=== PATIENT | male | born 1990 | race Caucasian/White ===

== ENCOUNTER 2018-01-12 09:18 | Emergency (ER) | payer OTHER, MEDICAID, SELFPAY ==
[2018-01-12 09:27] VITALS: BMI 24.1
[2018-01-12 09:28] VITALS: BP 121/83; PULSE 88; RESP 14; TEMP 36.6; O2SAT 100
--- NOTE | 2018-01-12 09:30 | PC.NURSE ---
states , occasional weed
--- NOTE | 2018-01-12 09:58 | ED.FALL ---
HPI - Fall General Chief Complaint: Fall Stated Complaint: SKATEBOARD ACCIDENT Time Seen by Provider: 01/12/18 09:24 Source: patient Mode of arrival: ambulatory Limitations: no limitations History of Present Illness HPI Narrative: 27-year-old male with a history of drug use presents with left elbow pain after falling at the [employer] park today. He has a small abrasion but does not think there is a significant injury. More concerning least to him he would like to be evaluated for a head injury that occurred 3 years ago while in [place]. Since that time he states he has had off and on headaches. He does not have a headache today. He states he has an appointment with his primary care provider tomorrow where he is planning to discuss this further. He denies any confusion, weakness, or other neurologic symptoms. He states that about 3 weeks ago while he was walking outside his body involuntarily turned to the left. Since then he has had no other symptoms. He did not hit his head in the injury at the [employer] today. Related Data Home Medications Medication Instructions Recorded Confirmed clonazepam #90 10/11/17 Previous Rx's Medication Instructions Recorded dextroamphetamine-amphetamine 30 mg PO QDAY #45 cap 03/18/16 permethrin 1 tube TOPICAL X1 #60 gm 10/07/17 mupirocin 0 red TOPICAL TID #22 gm 10/11/17 permethrin 0 red TOPICAL X1 #60 gm 10/11/17 Review of Systems Review of Systems All systems reviewed & are unremarkable except as noted in HPI and below Constitutional Denies chills, Denies fever(s), Denies lethargy and Denies weakness Eyes Denies change in vision, Denies eye discharge, Denies irritation and Denies loss of vision ENT Ears, Nose, Mouth, and Throat: Denies change in voice, Denies neck pain and Denies sore throat Cardiovascular Denies chest pain, Denies irregular heart rhythm, Denies lightheadedness, Denies palpitations, Denies dyspnea, Denies dyspnea on exertion and Denies orthopnea Respiratory Denies cough, Denies dyspnea, Denies dyspnea on exertion and Denies wheezing Gastrointestinal Gastrointestinal: Denies abdominal pain, Denies change in bowel habits, Denies diarrhea, Denies nausea and Denies vomiting Genitourinary Denies hematuria, Denies flank pain, Denies urinary incontinence and Denies urinary urgency Musculoskeletal Denies neck pain Integumentary/Breasts Denies pruritus, Denies erythema, Denies rash and Reports wounds Comments: Abrasion to left elbow Neurologic Denies confusion, Denies loss of vision and Denies weakness Psychiatric Denies anxiety, Denies confusion, Denies depression, Denies homicidal ideation and Denies suicidal ideation Endocrine Denies palpitations Hematologic/Lymphatic Denies easy bruising Allergic/Immunologic Denies wheezing Exam Initial Vital Signs Initial Vital Signs: Vital Signs Temperature 97.9 F 01/12/18 09:28 Pulse Rate 88 01/12/18 09:28 Respiratory Rate 14 01/12/18 09:28 Blood Pressure 121/83 H 01/12/18 09:28 Pulse Oximetry 100 01/12/18 09:28 Const General: cooperative and well developed Nutritional Appearance: well nourished Orientation: alert, awake, oriented x3 and not confused Other: Patient appears high on drugs HENMT Head: normocephalic and atraumatic Ears: external ears normal and TM's normal bilaterally Nose: external nose normal and No nasal discharge Face and sinus: sinuses nontender, face symmetric, no sinus tenderness and No dry mucous membranes Mouth: oral mucosae normal and moist mucous membranes Teeth and gingiva: dentition normal Throat: tonsils normal and uvula midline Eyes General: appearance normal, both eyes and all related structures Eyelids: eyelids normal Conjunctivae: conjunctivae normal Sclera: sclerae normal Pupils: PERRL EOM: EOM intact bilaterally Neck Neck: normal visual inspection, trachea midline, No lymphadenopathy, No midline deformity and No JVD Lymphatic: No lymphedema Chest Chest: normal inspection of the chest Resp Effort & Inspection: normal respiratory effort, able to speak in complete sentences, no respiratory distress and no use of accessory muscles Auscultation: clear to auscultation bilaterally, no rales, no rhonchi and no wheezes Cardio Rate: regular rate Rhythm: regular rhythm Heart Sounds: no click, no gallops, no murmurs and no rubs Pulses: normal peripheral pulses GI Inspection: non-distended Palpation: soft, no hepatosplenomegaly, No guarding, No pulsatile mass and No tender Auscultation: normal bowel sounds Back/Spine/Pelvis Back: No CVA tenderness Cervical Spine: cervical ROM normal and No pain with cervical ROM Thoracic/Lumbar Spine: thoracic and lumbar spine normal to inspection Skin General: no rashes or lesions noted, No jaundice and No petechiae Other: Small abrasion over left elbow with no tenderness or pain with range of motion Neuro General: alert, oriented x3, gait normal and no focal motor deficits Speech: speech normal Extrem General: full ROM, no clubbing, cyanosis or edema, no pedal edema and no calf tenderness Psych Appearance: well kempt Mental Status: mental status grossly normal Attitude: cooperative Thought Content: normal and suicidality Judgment: judgment good [facility] Social History Smoking Status: Current every day smoker Course Vital Signs - 8 hr 01/12/18 09:28 Temperature 97.9 F Pulse Rate 88 Respiratory Rate 14 Blood Pressure [Left Arm] 121/83 H Pulse Oximetry 100 MDM - Fall MDM Narrative Medical decision making narrative: No significant injuries are noted on examination. By history his head injury 3 years ago does not appear pertinent today in an emergency setting. He has follow-up tomorrow with his primary care provider and I advised that he discuss this further then. Discharge Plan Departure Patient Disposition: Home, Self-Care Clinical Impression: Fall from ground level, Contusion of elbow, left Instructions: DI for Contusion Activity Restrictions/Additional Instructions: Thank you for trusting is with your care today. No dangerous injuries were identified in your emergency department evaluation. Please do not use drugs. Follow up about your concerns from year head injury 3 years ago with your primary care as scheduled tomorrow. Prescriptions: No Action dextroamphetamine-amphetamine 30 MG capsule,extended release 24hr 30 mg PO QDAY Qty: 45 RF: 0 permethrin 5 % cream 1 tube Topical X1 Qty: 60 RF: 0 clonazepam 1 MG tablet Qty: 90 RF: 0 permethrin 5 % cream Topical X1 Qty: 60 RF: 0 mupirocin 2 % ointment Topical TID Qty: 22 RF: 0
== END 2018-01-12 10:15 | disposition home or self-care (01) ==
PROVIDERS: Emergency Provider Emergency Medicine; Family Provider Family Medicine; PCP Family Medicine
DX: S50.02XA Contusion of left elbow, initial encounter (principal); V00.131A Fall from skateboard, initial encounter
CPT/HCPCS: 99282; 99283

== ENCOUNTER 2019-04-29 10:57 | Emergency (ER) | payer OTHER, MEDICAID, SELFPAY ==
--- NOTE | 2019-04-29 11:09 | ED_ITS ---
HPI - Extremity Problem <Becky Hauser PA-C - Last Filed: 04/29/19 14:03> General Chief complaint: Skin/Abscess/Foreign Body Stated complaint: pain in fingers and heels of feet Time Seen by Provider: 04/29/19 11:07 Source: patient Mode of arrival: Ambulatory Limitations: no limitations History of Present Illness HPI Narrative: This 28-year-old male comes to ED secondary to recurrent painful rash on his hands, states this has been going on for months but a few days ago got worse after he had his hands in salt water. He states he also noticed some white discoloration and flaking on his feet, more on the right side, when in the shower a few days ago, but this is not painful. He states that he has had intermittent singular blister-like lesions more in the trunk area off and on, no ne now. He is a commercial loan analyst, and though he has not been fishing regularly or crabbng recently, this started when he was still fishing. He states he has some ongoing fatigue, denies any recent illness or upper respiratory his symptoms. He denies any ongoing fever, joint pain or swelling. He denies any dyspnea or cough. He states that he came in today because the hand rash seems worse and more painful after exposure to the salt water. He noticed some black discoloration under his nails after that as well that goes away with rubbing alcohol. He was concerned that this could be contagious. He denies any recent travel or known specific exposures. No STD concerns though he states he has a remote history of scabies. Related Data Home Medications Medication Instructions Recorded Confirmed clonazepam #90 10/11/17 Previous Rx's Medication Instructions Recorded dextroamphetamine-amphetamine 30 mg PO QDAY #45 cap 03/18/16 permethrin 1 tube TOPICAL X1 #60 gm 10/07/17 mupirocin 0 red TOPICAL TID #22 gm 10/11/17 permethrin 0 red TOPICAL X1 #60 gm 10/11/17 clobetasol 1 applictn TOP DAILY #60 gram 04/29/19 Allergies Allergy/AdvReac Type Severity Reaction Status Date / Time No Known Drug Allergies Allergy Verified 04/29/19 11:18 Review of Systems <Becky Hauser PA-C - Last Filed: 04/29/19 14:03> Review of Systems ROS Unobtainable: All systems reviewed & are unremarkable except as noted in HPI and below PFSH <Becky Hauser PA-C - Last Filed: 04/29/19 14:03> Medical History (Updated 04/29/19 @ 11:44 by Becky Hauser PA-C) Anxiety (Chronic) History of narcotic addiction (Resolved) No chronic problems (Acute) Surgical History (Updated 04/29/19 @ 11:10 by Becky Hauser PA-C) No history of previous surgery (Acute) Social History Smoking Status: Current every day smoker Social History Smoking Status: Current every day smoker Comment: h/o addiction, currently sober, on suboxone Exam <Becky Hauser PA-C - Last Filed: 04/29/19 14:03> Narrative Exam Narrative: GENERAL APPEARANCE: Patient sitting comfortably, in no distress. LUNGS: Clear to auscultation bilaterally. HEART: Rate and rhythm regular without murmur, normal S1 and S2, no S3 or S4. DERMATOLOGIC: There are small, scant, 1-3 mm maculopapular dusky erythematous lesions on the distal fingers and dry scaling/flaking around the nail borders on the fingers. There is some callus on the palms. There are no vesicular or pustular lesions. There is some dry flaking on both heels, no other lesions on the feet. No interdigital lesions. Skin on the fingers appears slightly tight with extension MUSCULOSKELETAL: No joint tenderness or effusion over the hands, wrists, feet or ankles EXTREMITIES: Warm and pink without cyanosis or edema Initial Vital Signs Initial Vital Signs: Vital Signs Temperature 98.2 F 04/29/19 11:15 Pulse Rate 68 04/29/19 11:15 Respiratory Rate 16 04/29/19 11:15 Blood Pressure 129/78 04/29/19 11:15 Pulse Oximetry 98 04/29/19 11:15 <Miquel Condon DO - Last Filed: 04/29/19 15:50> Initial Vital Signs Initial Vital Signs: Vital Signs Temperature 98.2 F 04/29/19 11:15 Pulse Rate 68 04/29/19 11:15 Respiratory Rate 16 04/29/19 11:15 Blood Pressure 129/78 04/29/19 11:15 Pulse Oximetry 98 04/29/19 11:15 Course <Becky Hauser PA-C - Last Filed: 04/29/19 14:03> Vital Signs Vital signs: Vital Signs - 8 hr 04/29/19 11:15 Temperature 98.2 F Pulse Rate 68 Respiratory Rate 16 Blood Pressure 129/78 Pulse Oximetry 98 <Miquel Condon DO - Last Filed: 04/29/19 15:50> Vital Signs Vital signs: Vital Signs - 8 hr 04/29/19 11:15 Temperature 98.2 F Pulse Rate 68 Respiratory Rate 16 Blood Pressure 129/78 Pulse Oximetry 98 Discharge Plan Departure Patient Disposition: Home Clinical Impression: Dyshidrotic eczema Discharge Date/Time: 04/29/19 11:48 Instructions: Eczema Activity Restrictions/Additional Instructions: From the long history of the skin problems you tell me about and based on your exam today I think you have a form of eczema called dyshidrotic eczema, which is not unusual in folks who have prolonged water and moisture exposure. I have p rescribed a steroid cream for you to try until you can see a primary care provider and assess how this is working for you. Please avoid using hot water when you wash or shower. Avoid use of harsh soaps, perfumes, etc. Use an allergy free cream such as Cetaphil on these areas as well and you can also use vaseline on dry areas. If you need to work, wear cotton gloves under your crabbing gloves. As we talked about, since you have had intermittent rashes for several months such as the blisters that were not there today for me to see, I do think it is important for you to follow up and have further testing. It will be helpful to see how the steroid works for you in the interim. As we talked about, you can return to the ED in the interim if you have any acute changes or worsening symptoms. Please call the [facility] senior water resources engineer at [phone] on Wednesday for help getting set up with a primary care provider to follow up with. Prescriptions: New clobetasol 0.05 % cream 1 applictn TOP DAILY Qty: 60 RF: 0 No Action dextroamphetamine-amphetamine 30 MG capsule,extended release 24hr 30 mg PO QDAY Qty: 45 RF: 0 permethrin 5 % cream 1 tube Topical X1 Qty: 60 RF: 0 clonazepam 1 MG tablet Qty: 90 RF: 0 permethrin 5 % cream 0 red Topical X1 Qty: 60 RF: 0 mupirocin 2 % ointment 0 red Topical TID Qty: 22 RF: 0
[2019-04-29 11:15] VITALS: BP 129/78; PULSE 68; RESP 16; TEMP 36.8; O2SAT 98
--- NOTE | 2019-04-29 11:47 | PC.NURSE ---
reports long history of white bumps and black under finger nail and on hands. Worse after hot showers. Patient has similar symptoms on feet bilaterally heels and balls of feet. SOme discoloration under toe nail beds
== END 2019-04-29 11:48 | disposition home or self-care (01) ==
PROVIDERS: Emergency Provider Internal Medicine
DX: L30.1 Dyshidrosis [pompholyx] (principal)
CPT/HCPCS: 99282

== ENCOUNTER 2019-07-02 16:46 | Emergency (ER) | payer OTHER, MEDICAID, SELFPAY ==
[2019-07-02] VITALS (12 sets, daily range): BP systolic 107–125; BP diastolic 57–80; PULSE 82–107; RESP 9–16; TEMP 36.8; O2SAT 96–98; BMI 25.8
[2019-07-02 17:19] LABS: Bacteria Urine None Seen; RBC Urine None Seen (0-5/HPF); WBC Urine None Seen (0-5/HPF)
[2019-07-02 17:20] LABS: Appearance Urine UA CLEAR; Bilirubin Urine UA NEGATIVE (NEGATIVE); Color Urine UA YELLOW; Glucose Urine UA NEGATIVE (Negative); Ketones Urine UA TRACE (NEGATIVE); Leukocyte Esterase Urine UA NEGATIVE (NEGATIVE); Nitrite Urine UA NEGATIVE (Negative); Occult Blood Urine UA NEGATIVE (Negative); Protein Urine UA NEGATIVE (Negative); Urobilinogen Urine UA 0.2 E.U./dL (0.2); pH Urine UA 6.5 (4.5-8.0)
[2019-07-02 17:23] LABS: Add Manual Diff / Slide Review NO; Basophils Absolute Auto 0 /uL (0-100); Basophils Percent Auto 0.8 % (0-2); Eosinophils Absolute Auto 300 /uL (0-450); Eosinophils Percent Auto 7.2 % (2-4); Hematocrit 37.8 % (41-53); Hemoglobin 12.9 g/dL (13.5-17.5); Lymphocytes Absolute Auto 1900 /uL (1100-4500); Lymphocytes Percent Auto 42.6 % (25-40); Mean Corpuscular Hemoglobin 30.8 PG (26-34); Mean Corpuscular Volume 90.4 fL (80-100); Monocytes Absolute Auto 400 /uL (0-900); Monocytes Percent Auto 8.9 % (3-14); Neutrophils Absolute Auto 1800 /uL (1500-7000); Neutrophils Percent Auto 40.5 % (50-75); Platelet Count 209 X10^3/uL (150-400); Red Blood Cell Count 4.18 X10^6/uL (4.5-5.9); Red Cell Distribution Width 13.5 % (11.6-14.8); White Blood Cell Count 4.4 X10^3/uL (4.5-11.0)
[2019-07-02 17:25] LABS: Blood Urea Nitrogen 14 mg/dL (9-20); Calcium 8.7 mg/dL (8.4-10.2); Carbon Dioxide 33 mmol/L (22-32); Chloride 102 mmol/L (98-107); Estimated Glomerular Filt Rate > 60.0 mL/min (>60); Glucose 102 mg/dL (70-100); HEMOLYSIS 20 (0-50); Potassium 4.4 mmol/L (3.4-5.1); Sodium 141 mmol/L (137-145)
[2019-07-02 17:26] LABS: Ur Creatinine 100 (Normal); Ur Specific Gravity 1.025 (Normal); Urine pH 5 (Normal)
[2019-07-02 17:27] LABS: UR Morphine/Opiate cutoff 300 Positive (Negative); Urine Amphetamines Positive (Negative); Urine Cocaine Positive (Negative); Urine Methamphetamines Positive (Negative); Urine Tetrahydrocannabinol Positive (Negative)
[2019-07-02 17:28] LABS: Urine Barbiturates Negative (Negative); Urine Benzodiazepines Negative (Negative); Urine MDMA Negative (Negative); Urine Phencyclidine Negative (Negative)
[2019-07-02 17:29] LABS: Urine Oxycodone Negative (Negative); Urine Tricyclic Antidepressant Negative (Negative)
[2019-07-02 17:33] LABS: Culture Indicated Urine Cult Not Indicated
--- NOTE | 2019-07-02 17:34 | ED.OVERDOSE ---
HPI - Overdose <Judy Salas MD - Last Filed: 07/03/19 20:06> General Chief Complaint: Toxicology Problem Stated Complaint: ETOH, Altered mental status Time Seen by Provider: 07/02/19 17:13 Source: EMS Mode of arrival: EMS Limitations: altered mental status History of Present Illness HPI Narrative: Patient was brought to the emergency department [place] EMS was contacted and patient was brought to the emergency department by them. The patient admits to taking some his Klonopin, though he cannot say how much. He is not able to offer much historical information, as he is under the influence of a sedating substance clinically. It is not known whether he took any other substances besides the Klonopin. Related Data Home Medications Medication Instructions Recorded Confirmed clonazepam #90 10/11/17 Previous Rx's Medication Instructions Recorded dextroamphetamine-amphetamine 30 mg PO QDAY #45 cap 03/18/16 permethrin 1 tube TOPICAL X1 #60 gm 10/07/17 mupirocin 0 red TOPICAL TID #22 gm 10/11/17 permethrin 0 red TOPICAL X1 #60 gm 10/11/17 clobetasol 1 applictn TOP DAILY #60 gram 04/29/19 Allergies Allergy/AdvReac Type Severity Reaction Status Date / Time No Known Drug Allergies Allergy Verified 04/29/19 11:18 Review of Systems <Judy Salas MD - Last Filed: 07/03/19 20:06> Review of Systems ROS Unobtainable: Unobtainable due to mental status/LOC Patient History <Judy Salas MD - Last Filed: 07/03/19 20:06> Medical History Anxiety (Chronic) History of narcotic addiction (Resolved) No chronic problems (Acute) Surgical History No history of previous surgery (Acute) Social History Smoking Status: Current every day smoker Substance Use Type: other Exam <Judy Salas MD - Last Filed: 07/03/19 20:06> Initial Vital Signs Initial Vital Signs: Vital Signs Temperature 98.3 F 07/02/19 17:05 Pulse Rate 107 H 07/02/19 17:05 Respiratory Rate 14 07/02/19 17:05 Blood Pressure 125/80 07/02/19 17:05 Pulse Oximetry 96 07/02/19 17:05 Const General: cooperative and well developed Nutritional Appearance: well nourished Limitations: altered mental status Other: Patient is arousable, but heavily drowsy. He mumbles answers to questions when aroused with noxious stimuli. HENSD Head: normocephalic and atraumatic Ears: external ears normal and TM's normal bilaterally Nose: external nose normal and No nasal discharge Face and sinus: sinuses nontender, face symmetric, no sinus tenderness and No dry mucous membranes Mouth: oral mucosae normal and moist mucous membranes Teeth and gingiva: dentition normal Throat: tonsils normal and uvula midline Eyes General: appearance normal, both eyes and all related structures Eyelids: eyelids normal Conjunctivae: conjunctivae normal Sclera: sclerae normal Pupils: PERRL EOM: EOM intact bilaterally Neck Neck: normal visual inspection, trachea midline, No lymphadenopathy, No midline deformity and No JVD Lymphatic: No lymphedema Chest Chest: normal inspection of the chest Resp Effort & Inspection: normal respiratory effort, able to speak in complete sentences, no respiratory distress and no use of accessory muscles Auscultation: clear to auscultation bilaterally, no rales, no rhonchi and no wheezes Cardio Rate: regular rate Rhythm: regular rhythm Heart Sounds: no click, no gallops, no murmurs and no rubs Pulses: normal peripheral pulses GI Inspection: non-distended Palpation: soft, no hepatosplenomegaly, No guarding, No pulsatile mass and No tender Auscultation: normal bowel sounds Back/Spine/Pelvis Back: No CVA tenderness Cervical Spine: cervical ROM normal and No pain with cervical ROM Thoracic/Lumbar Spine: thoracic and lumbar spine normal to inspection Skin General: no rashes or lesions noted, No jaundice and No petechiae Neuro General: moves all extremities, no focal motor deficits and CN's II-XI intact bilaterally Cognition: abnormal cognition Speech: speech normal Extrem General: full ROM, no clubbing, cyanosis or edema, no pedal edema and no calf tenderness Psych Appearance: well kempt Mental Status: mental status grossly normal Attitude: cooperative Thought Content: normal and suicidality Judgment: judgment good <Dirk Lara DO - Last Filed: 07/03/19 06:41> Initial Vital Signs Initial Vital Signs: Vital Signs Temperature 98.3 F 07/02/19 17:05 Pulse Rate 107 H 07/02/19 17:05 Respiratory Rate 14 07/02/19 17:05 Blood Pressure 125/80 07/02/19 17:05 Pulse Oximetry 96 07/02/19 17:05 Course <Judy Salas MD - Last Filed: 07/03/19 20:06> Course Course Narrative: The patient's oxygen saturation was good, but he was noted to have a decreased respiratory rate at 6-7 breaths per minute. As such, patient was given Narcan 0.4 mg IV in the emergency department with mild improvement in his respiratory rate. He was signed out to Dr. Lara pending workup and increased sobriety. Orders Ordered: Discontinued Medications Sodium Chloride (Normal Saline 0.9%) 1,000 mls @ 1,000 mls/hr IV BOLUS ONE Stop: 07/02/19 18:42 Last Infusion: 07/02/19 18:59 Dose: 0 mls/hr Documented by: Admin: 07/02/19 17:45 Dose: 1,000 mls/hr Documented by: BAO Naloxone HCl (Narcan) 0.4 mg IV NOW ONE Stop: 07/02/19 17:34 Last Admin: 07/02/19 17:44 Dose: 0.4 mg Documented by: BAO Vital Signs Vital signs: Vital Signs - 8 hr 07/02/19 22:38 07/02/19 23:54 07/03/19 00:45 Temperature 98.0 F Pulse Rate 86 82 81 Respiratory Rate 10 L 16 10 L Blood Pressure [Left Arm] 107/63 108/57 L 105/59 L Pulse Oximetry 97 97 97 07/03/19 01:38 07/03/19 03:24 07/03/19 04:29 Temperature Pulse Rate 82 80 79 Respiratory Rate 11 L 10 L 11 L Blood Pressure [Left Arm] 107/56 L 107/61 107/60 Pulse Oximetry 99 98 97 07/03/19 05:57 Temperature Pulse Rate 95 H Respiratory Rate 12 Blood Pressure [Left Arm] 106/58 L Pulse Oximetry 99 <Dirk Lara DO - Last Filed: 07/03/19 06:41> Orders Ordered: Discontinued Medications Sodium Chloride (Normal Saline 0.9%) 1,000 mls @ 1,000 mls/hr IV BOLUS ONE Stop: 07/02/19 18:42 Last Infusion: 07/02/19 18:59 Dose: 0 mls/hr Documented by: Admin: 07/02/19 17:45 Dose: 1,000 mls/hr Documented by: BAO Naloxone HCl (Narcan) 0.4 mg IV NOW ONE Stop: 07/02/19 17:34 Last Admin: 07/02/19 17:44 Dose: 0.4 mg Documented by: BAO Vital Signs Vital signs: Vital Signs - 8 hr 07/02/19 22:38 07/02/19 23:54 07/03/19 00:45 Temperature 98.0 F Pulse Rate 86 82 81 Respiratory Rate 10 L 16 10 L Blood Pressure [Left Arm] 107/63 108/57 L 105/59 L Pulse Oximetry 97 97 97 07/03/19 01:38 07/03/19 03:24 07/03/19 04:29 Temperature Pulse Rate 82 80 79 Respiratory Rate 11 L 10 L 11 L Blood Pressure [Left Arm] 107/56 L 107/61 107/60 Pulse Oximetry 99 98 97 07/03/19 05:57 Temperature Pulse Rate 95 H Respiratory Rate 12 Blood Pressure [Left Arm] 106/58 L Pulse Oximetry 99 MDM - Overdose <Judy Salas MD - Last Filed: 07/03/19 20:06> Lab Data Result diagrams: 07/02/19 17:03 07/02/19 17:03 Labs: Lab Results 07/02/19 07/02/19 07/02/19 Range/Units 17:03 17:03 17:03 WBC 4.4 L (4.5-11.0) X10^3/uL RBC 4.18 L (4.5-5.9) X10^6/uL Hgb 12.9 L (13.5-17.5) g/dL Hct 37.8 L (41-53) % MCV 90.4 (80-100) fL MCH 30.8 (26-34) PG MCHC 34.0 (30-36) % RDW 13.5 (11.6-14.8) % Plt Count 209 (150-400) X10^3/uL Neut % (Auto) 40.5 L (50-75) % Lymph % (Auto) 42.6 H (25-40) % [place] % (Auto) 8.9 (3-14) % Eos % (Auto) 7.2 H (2-4) % Baso % (Auto) 0.8 (0-2) % Neut # (Auto) 1800 (3440-8504) /uL Lymph # (Auto) 1900 (1231-4722) /uL [place] # (Auto) 400 (0-900) /uL Eos # (Auto) 300 (0-450) /uL Baso # (Auto) 0 (0-100) /uL Sodium (137-145) mmol/L Potassium (3.4-5.1) mmol/L Chloride (98-107) mmol/L Carbon Dioxide (22-32) mmol/L BUN (9-20) mg/dL Creatinine (0.66-1.25) mg/dL Estimated GFR (>60) mL/min BUN/Creatinine Ratio (6-22) Glucose (70-100) mg/dL Calcium (8.4-10.2) mg/dL Total Bilirubin (0.2-1.3) mg/dL Conjugated Bilirubin (0.0-0.3) md/dL Unconjugated Bilirubin (0.0-1.1) mg/dL AST (17-59) IU/L ALT (<50) IU/L Alkaline Phosphatase (38-126) U/L Total Protein (6.3-8.2) g/dL Albumin (3.5-5.0) g/dL Globulin (1.7-4.1) g/dL Albumin/Globulin Ratio (1.0-2.8) Urine Color Yellow Urine Appearance Clear Urine pH 6.5 (4.5-8.0) Ur Specific Rebecca 1.020 (1.000-1.035) Urine Protein Negative (Negative) Urine Glucose (UA) Negative (Negative) g/dL Urine Ketones Trace H (NEGATIVE) Urine Occult Blood Negative (Negative) Urine Nitrate Negative (Negative) Urine Bilirubin Negative (NEGATIVE) Urine Urobilinogen 0.2 (0.2) E.U./dL Ur Leukocyte Esterase Negative (NEGATIVE) Urine RBC None seen (0-5/HPF) Urine WBC None seen (0-5/HPF) Urine Bacteria None seen (None) Ur Culture Indicated? Cult not indicated U Morph 300 ng/mL cutoff Positive H (Negative) Ur Oxycodone Screen Negative (Negative) Urine Methadone Screen TNP Ur Barbiturates Screen Negative (Negative) U Tricyclic Antidepress Negative (Negative) Ur Phencyclidine Scrn Negative (Negative) Ur Amphetamines Screen Positive H (Negative) U Methamphetamines Scrn Positive H (Negative) Ur MDMA Scrn (Ecstasy) Negative (Negative) U Benzodiazepines Scrn Negative (Negative) Urine Cocaine Screen Positive H (Negative) U Marijuana (THC) Screen Positive H (Negative) Ethyl Alcohol ( - 10) mg/dL 07/02/19 07/02/19 07/02/19 Range/Units 17:03 17:03 17:03 WBC (4.5-11.0) X10^3/uL RBC (4.5-5.9) X10^6/uL Hgb (13.5-17.5) g/dL Hct (41-53) % MCV (80-100) fL MCH (26-34) PG MCHC (30-36) % RDW (11.6-14.8) % Plt Count (150-400) X10^3/uL Neut % (Auto) (50-75) % Lymph % (Auto) (25-40) % [place] % (Auto) (3-14) % Eos % (Auto) (2-4) % Baso % (Auto) (0-2) % Neut # (Auto) (7788-0446) /uL Lymph # (Auto) (7250-4474) /uL [place] # (Auto) (0-900) /uL Eos # (Auto) (0-450) /uL Baso # (Auto) (0-100) /uL Sodium 141 (137-145) mmol/L Potassium 4.4 (3.4-5.1) mmol/L Chloride 102 (98-107) mmol/L Carbon Dioxide 33 H (22-32) mmol/L BUN 14 (9-20) mg/dL Creatinine 1.00 (0.66-1.25) mg/dL Estimated GFR > 60.0 (>60) mL/min BUN/Creatinine Ratio 14.0 (6-22) Glucose 102 H (70-100) mg/dL Calcium 8.7 (8.4-10.2) mg/dL Total Bilirubin 0.3 (0.2-1.3) mg/dL Conjugated Bilirubin 0.0 (0.0-0.3) md/dL Unconjugated Bilirubin 0.2 (0.0-1.1) mg/dL AST 35 (17-59) IU/L ALT 29 (<50) IU/L Alkaline Phosphatase 68 (38-126) U/L Total Protein 6.8 (6.3-8.2) g/dL Albumin 4.4 (3.5-5.0) g/dL Globulin 2.4 (1.7-4.1) g/dL Albumin/Globulin Ratio 1.8 (1.0-2.8) Urine Color Urine Appearance Urine pH (4.5-8.0) Ur Specific Rebecca (1.000-1.035) Urine Protein (Negative) Urine Glucose (UA) (Negative) g/dL Urine Ketones (NEGATIVE) Urine Occult Blood (Negative) Urine Nitrate (Negative) Urine Bilirubin (NEGATIVE) Urine Urobilinogen (0.2) E.U./dL Ur Leukocyte Esterase (NEGATIVE) Urine RBC (0-5/HPF) Urine WBC (0-5/HPF) Urine Bacteria (None) Ur Culture Indicated? U Morph 300 ng/mL cutoff (Negative) Ur Oxycodone Screen (Negative) Urine Methadone Screen Ur Barbiturates Screen (Negative) U Tricyclic Antidepress (Negative) Ur Phencyclidine Scrn (Negative) Ur Amphetamines Screen (Negative) U Methamphetamines Scrn (Negative) Ur MDMA Scrn (Ecstasy) (Negative) U Benzodiazepines Scrn (Negative) Urine Cocaine Screen (Negative) U Marijuana (THC) Screen (Negative) Ethyl Alcohol < 10 ( - 10) mg/dL <Dirk Lara, DO - Last Filed: 07/03/19 06:41> Lab Data Labs: Lab Results 07/02/19 07/02/19 07/02/19 Range/Units 17:03 17:03 17:03 WBC 4.4 L (4.5-11.0) X10^3/uL RBC 4.18 L (4.5-5.9) X10^6/uL Hgb 12.9 L (13.5-17.5) g/dL Hct 37.8 L (41-53) % MCV 90.4 (80-100) fL MCH 30.8 (26-34) PG MCHC 34.0 (30-36) % RDW 13.5 (11.6-14.8) % Plt Count 209 (150-400) X10^3/uL Neut % (Auto) 40.5 L (50-75) % Lymph % (Auto) 42.6 H (25-40) % [place] % (Auto) 8.9 (3-14) % Eos % (Auto) 7.2 H (2-4) % Baso % (Auto) 0.8 (0-2) % Neut # (Auto) 1800 (9917-4099) /uL Lymph # (Auto) 1900 (1518-0639) /uL [place] # (Auto) 400 (0-900) /uL Eos # (Auto) 300 (0-450) /uL Baso # (Auto) 0 (0-100) /uL Sodium (137-145) mmol/L Potassium (3.4-5.1) mmol/L Chloride (98-107) mmol/L Carbon Dioxide (22-32) mmol/L BUN (9-20) mg/dL Creatinine (0.66-1.25) mg/dL Estimated GFR (>60) mL/min BUN/Creatinine Ratio (6-22) Glucose (70-100) mg/dL Calcium (8.4-10.2) mg/dL Total Bilirubin (0.2-1.3) mg/dL Conjugated Bilirubin (0.0-0.3) md/dL Unconjugated Bilirubin (0.0-1.1) mg/dL AST (17-59) IU/L ALT (<50) IU/L Alkaline Phosphatase (38-126) U/L Total Protein (6.3-8.2) g/dL Albumin (3.5-5.0) g/dL Globulin (1.7-4.1) g/dL Albumin/Globulin Ratio (1.0-2.8) Urine Color Yellow Urine Appearance Clear Urine pH 6.5 (4.5-8.0) Ur Specific Rebecca 1.020 (1.000-1.035) Urine Protein Negative (Negative) Urine Glucose (UA) Negative (Negative) g/dL Urine Ketones Trace H (NEGATIVE) Urine Occult Blood Negative (Negative) Urine Nitrate Negative (Negative) Urine Bilirubin Negative (NEGATIVE) Urine Urobilinogen 0.2 (0.2) E.U./dL Ur Leukocyte Esterase Negative (NEGATIVE) Urine RBC None seen (0-5/HPF) Urine WBC None seen (0-5/HPF) Urine Bacteria None seen (None) Ur Culture Indicated? Cult not indicated U Morph 300 ng/mL cutoff Positive H (Negative) Ur Oxycodone Screen Negative (Negative) Urine Methadone Screen TNP Ur Barbiturates Screen Negative (Negative) U Tricyclic Antidepress Negative (Negative) Ur Phencyclidine Scrn Negative (Negative) Ur Amphetamines Screen Positive H (Negative) U Methamphetamines Scrn Positive H (Negative) Ur MDMA Scrn (Ecstasy) Negative (Negative) U Benzodiazepines Scrn Negative (Negative) Urine Cocaine Screen Positive H (Negative) U Marijuana (THC) Screen Positive H (Negative) Ethyl Alcohol ( - 10) mg/dL 07/02/19 07/02/19 07/02/19 Range/Units 17:03 17:03 17:03 WBC (4.5-11.0) X10^3/uL RBC (4.5-5.9) X10^6/uL Hgb (13.5-17.5) g/dL Hct (41-53) % MCV (80-100) fL MCH (26-34) PG MCHC (30-36) % RDW (11.6-14.8) % Plt Count (150-400) X10^3/uL Neut % (Auto) (50-75) % Lymph % (Auto) (25-40) % [place] % (Auto) (3-14) % Eos % (Auto) (2-4) % Baso % (Auto) (0-2) % Neut # (Auto) (6626-6779) /uL Lymph # (Auto) (2654-5189) /uL [place] # (Auto) (0-900) /uL Eos # (Auto) (0-450) /uL Baso # (Auto) (0-100) /uL Sodium 141 (137-145) mmol/L Potassium 4.4 (3.4-5.1) mmol/L Chloride 102 (98-107) mmol/L Carbon Dioxide 33 H (22-32) mmol/L BUN 14 (9-20) mg/dL Creatinine 1.00 (0.66-1.25) mg/dL Estimated GFR > 60.0 (>60) mL/min BUN/Creatinine Ratio 14.0 (6-22) Glucose 102 H (70-100) mg/dL Calcium 8.7 (8.4-10.2) mg/dL Total Bilirubin 0.3 (0.2-1.3) mg/dL Conjugated Bilirubin 0.0 (0.0-0.3) md/dL Unconjugated Bilirubin 0.2 (0.0-1.1) mg/dL AST 35 (17-59) IU/L ALT 29 (<50) IU/L Alkaline Phosphatase 68 (38-126) U/L Total Protein 6.8 (6.3-8.2) g/dL Albumin 4.4 (3.5-5.0) g/dL Globulin 2.4 (1.7-4.1) g/dL Albumin/Globulin Ratio 1.8 (1.0-2.8) Urine Color Urine Appearance Urine pH (4.5-8.0) Ur Specific Rebecca (1.000-1.035) Urine Protein (Negative) Urine Glucose (UA) (Negative) g/dL Urine Ketones (NEGATIVE) Urine Occult Blood (Negative) Urine Nitrate (Negative) Urine Bilirubin (NEGATIVE) Urine Urobilinogen (0.2) E.U./dL Ur Leukocyte Esterase (NEGATIVE) Urine RBC (0-5/HPF) Urine WBC (0-5/HPF) Urine Bacteria (None) Ur Culture Indicated? U Morph 300 ng/mL cutoff (Negative) Ur Oxycodone Screen (Negative) Urine Methadone Screen Ur Barbiturates Screen (Negative) U Tricyclic Antidepress (Negative) Ur Phencyclidine Scrn (Negative) Ur Amphetamines Screen (Negative) U Methamphetamines Scrn (Negative) Ur MDMA Scrn (Ecstasy) (Negative) U Benzodiazepines Scrn (Negative) Urine Cocaine Screen (Negative) U Marijuana (THC) Screen (Negative) Ethyl Alcohol < 10 ( - 10) mg/dL MDM Narrative Medical decision making narrative: Dr lara: Received turned over from day provider. Reviewed patient's history and physical. Review patient's labs. He has multiple positive results in his urine drug screen. Patient has remained calm all evening. In the morning he was easily arousable. Initially stated that he only took 1/2 Klonopin but then he did state that he smokes some marijuana. He then went on to state ?you took a urine sample which did that show ?informed that there were multiple positive results. He says ?okay? he was alert and oriented x3. GCS of 15. Was able to ambulate around his room. Tolerating oral intake. He states he does not remember much of last evening. He does not know where his backpack is. He did not arrive to the emergency department the backpack. He does not have a phone with him. He did not want us to call his family which was the contacts located in our EMR. He states that he had another friend but did not know his friend's phone number. Patient did not have a phone with him. He was able to get dressed on his own. He was asking to leave. We offered to call him a cab but he declined. I do feel the patient has the capacity to make decisions and is clinically sober. Discharge Plan Departure Patient Disposition: Home Clinical Impression: Drug abuse Discharge Date/Time: 07/03/19 07:00 Instructions: DI for Drug Abuse and Drug Addiction Activity Restrictions/Additional Instructions: No driving for the next 24 hours or in the future if you partake in intoxicating substances. Recommend you contact your primary provider for follow-up. Return to the emergency department for any new or worsening symptoms Prescriptions: No Action dextroamphetamine-amphetamine 30 MG capsule,extended release 24hr 30 mg PO QDAY Qty: 45 RF: 0 permethrin 5 % cream 1 tube Topical X1 Qty: 60 RF: 0 clonazepam 1 MG tablet Qty: 90 RF: 0 permethrin 5 % cream 0 red Topical X1 Qty: 60 RF: 0 mupirocin 2 % ointment 0 red Topical TID Qty: 22 RF: 0 clobetasol 0.05 % cream 1 applictn TOP DAILY Qty: 60 RF: 0
[2019-07-02] MEDS: NALOXONE 0.4 MG/ML VIAL IV (17:44)
[2019-07-02] MEDS: SODIUM CHLORIDE 0.9% 1,000 ML 1000 ML IV (17:45)
[2019-07-02 17:48] LABS: Alanine Aminotransferase 29 IU/L (<50); Albumin 4.4 g/dL (3.5-5.0); Albumin Globulin Ratio 1.8 (1.0-2.8); Alkaline Phosphatase 68 U/L (38-126); Aspartate Aminotransferase 35 IU/L (17-59); Bilirubin Total 0.3 mg/dL (0.2-1.3); Bilirubin Unconjugated 0.2 mg/dL (0.0-1.1); Ethanol (ETOH) < 10 mg/dL; Globulin 2.4 g/dL (1.7-4.1); HEMOLYSIS 21 (0-50); Total Protein 6.8 g/dL (6.3-8.2)
[2019-07-03 00:45] VITALS: BP 105/59; PULSE 81; RESP 10; TEMP 36.7; O2SAT 97
[2019-07-03 01:38] VITALS: BP 107/56; PULSE 82; RESP 11; O2SAT 99
[2019-07-03 03:24] VITALS: BP 107/61; PULSE 80; RESP 10; O2SAT 98
[2019-07-03 04:29] VITALS: BP 107/60; PULSE 79; RESP 11; O2SAT 97
[2019-07-03 05:57] VITALS: BP 106/58; PULSE 95; RESP 12; O2SAT 99
[2019-07-03 07:00] VITALS: BP 107/58; PULSE 80; RESP 16; O2SAT 98
== END 2019-07-03 07:00 | disposition home or self-care (01) ==
PROVIDERS: Emergency Medicine; Emergency Provider Emergency Medicine
DX: F19.10 Other psychoactive substance abuse, uncomplicated (principal); F12.980 Cannabis use, unspecified with anxiety disorder
CPT/HCPCS: 36415; 51701; 80048; 80076; 80305; 80320; 81001; 85025; 93005; 96361; 96374; 99284; 99285; J2310

== ENCOUNTER 2020-08-12 11:24 | Emergency (ER) | payer OTHER, MEDICAID, SELFPAY ==
[2020-08-12 11:27] VITALS: BP 137/83; PULSE 86; RESP 14; TEMP 36.6; O2SAT 100; BMI 23.0
[2020-08-12 11:57] LABS: Add Manual Diff / Slide Review NO; Basophils Absolute Auto 0 /uL (0-100); Basophils Percent Auto 0.5 % (0-2); Eosinophils Absolute Auto 100 /uL (0-450); Eosinophils Percent Auto 2.2 % (2-4); Hematocrit 42.7 % (41-53); Hemoglobin 14.3 g/dL (13.5-17.5); Lymphocytes Absolute Auto 1000 /uL (1100-4500); Lymphocytes Percent Auto 17.1 % (25-40); Mean Corpuscular HGB Conc 33.4 % (30-36); Mean Corpuscular Volume 92.8 fL (80-100); Monocytes Absolute Auto 200 /uL (0-900); Neutrophils Absolute Auto 4500 /uL (1500-7000); Neutrophils Percent Auto 76.2 % (50-75); Platelet Count 224 X10^3/uL (150-400); Red Blood Cell Count 4.61 X10^6/uL (4.5-5.9); Red Cell Distribution Width 13.1 % (11.6-14.8)
[2020-08-12 11:59] LABS: COVID19 -Nasal RAPID Negative (Negative)
[2020-08-12 12:11] LABS: Alanine Aminotransferase 23 IU/L (<50); Albumin 4.5 g/dL (3.5-5.0); Albumin Globulin Ratio 1.7 (1.0-2.8); Alkaline Phosphatase 42 U/L (38-126); Aspartate Aminotransferase 29 IU/L (17-59); BUN Creatinine Ratio 21.9 (6-22); Bilirubin Total 0.4 mg/dL (0.2-1.3); Blood Urea Nitrogen 16 mg/dL (9-20); Calcium 8.9 mg/dL (8.4-10.2); Carbon Dioxide 33 mmol/L (22-32); Chloride 102 mmol/L (98-107); Estimated Glomerular Filt Rate > 60.0 mL/min (>60); Ethanol (ETOH) < 10 mg/dL; Globulin 2.7 g/dL (1.7-4.1); Glucose 88 mg/dL (70-100); HEMOLYSIS 20 (0-50); Sodium 139 mmol/L (137-145); Total Protein 7.2 g/dL (6.3-8.2)
--- NOTE | 2020-08-12 12:47 | PC.NURSE ---
presents to the ED A&Ox4. reports he has been in contact with [facility] and they sent him to an ED for medical clearance.
[2020-08-12 12:53] LABS: Thyroid Stimulating Hormone 1.18 uIU/mL (0.47-4.68)
--- NOTE | 2020-08-12 12:55 | ED_ITS ---
HPI - Alcohol <LILIA Lake - Last Filed: 08/12/20 15:45> General Chief Complaint: Toxicology Problem Stated Complaint: detox Time Seen by Provider: 08/12/20 12:26 Source: patient Mode of arrival: Ambulatory Limitations: no limitations History of Present Illness HPI narrative: 29-year-old male presenting to the emergency department for medical clearance for detox placement. Patient he uses alcohol, cocaine, meth, benzos, and Adderall. He smokes the substances. Last known use of substances was over the past few days he has used all of them. Last drink of alcohol was this morning. Patient denies any pain, fevers, abdominal pain, nausea, vomiting, diarrhea, dizziness, or any other concerns. He denies any suicidal or homicidal ideation. Patient states he has arranged admission with [facility] detox beds, they are requesting medical clearance on prescription for Ativan. Related Data Home Medications Medication Instructions Recorded Confirmed clonazepam 1 mg PO DAILY PRN #90 10/11/17 08/12/20 dextroamphetamine-amphetamine 60 mg PO QDAY 08/12/20 08/12/20 Previous Rx's Medication Instructions Recorded lorazepam [Ativan] 2 mg PO TID PRN #9 tab 08/12/20 Allergies Allergy/AdvReac Type Severity Reaction Status Date / Time No Known Drug Allergies Allergy Verified 08/12/20 11:33 Review of Systems <LILIA Lake - Last Filed: 08/12/20 15:45> Review of Systems Narrative: REVIEW OF SYSTEMS: GENERAL: Denies fever. HENT: No head trauma. EYES: No vision changes. CARDIOVASCULAR: No chest pain. RESPIRATORY: No shortness of breath or cough. GASTROINTESTINAL: No nausea, vomiting, diarrhea, or constipation. GENITOURINARY: No flank pain. MUSCULOSKELETAL: No pain. INTEGUMENTARY: No rash. NEURO: No numbness or tingling. PSYCH: No behavior or mood changes. Patient History <LILIA Lake - Last Filed: 08/12/20 15:45> Medical History Anxiety History of narcotic addiction No chronic problems Surgical History No history of previous surgery Social History Smoking Status: Current every day smoker Smoking Status: Current every day smoker tobacco type: cigarettes alcohol intake frequency: 3 or more drinks per day Substance Use Type: crack/cocaine, amphetamines, sedatives, opiates, painkillers, methamphetamine and prescription drug Exam <LILIA Lake - Last Filed: 08/12/20 15:45> Initial Vital Signs Initial Vital Signs: Vital Signs Temperature 97.8 F 08/12/20 11:27 Pulse Rate 86 08/12/20 11:27 Respiratory Rate 14 08/12/20 11:27 Blood Pressure 137/83 08/12/20 11:27 Pulse Oximetry 100 08/12/20 11:27 PHYSICAL EXAMINATION: GENERAL: Awake and alert, answers questions appropriately. HENT: Normocephalic, atraumatic. EYES: PERRLA, EOMIs,Conjunctiva pink, sclera white, no periorbital swelling. CHEST: Normal to inspection and without deformities. CARDIOVASCULAR: S1 and S2 sounds normal. Regular rate and rhythm, no murmurs, clicks, or bruits. No pedal edema. RESPIRATORY: Normal respiratory rate, trachea midline, airway patent. No stridor, nasal flaring or accessory muscle use. Lungs are clear in all burr without wheeze, rhonchi, or crackles. MUSCULOSKELETAL: Normal gait and coordination. Equal tone and mass bilaterally. EXTREMITIES: CMS intact. Moves all extremities. SKIN: Warm, dry, soft, appropriate color for ethnicity. No lesions, rashes, or wounds. NEURO: Alert and Oriented X 3. Good coordination. No ataxia, or sensory deficits, or cognitive issues. PSYCH: Appropriate affect and mood. <Zahida Escalante DO - Last Filed: 08/12/20 19:23> Initial Vital Signs Initial Vital Signs: Vital Signs Temperature 97.8 F 08/12/20 11:27 Pulse Rate 86 08/12/20 11:27 Respiratory Rate 14 08/12/20 11:27 Blood Pressure 137/83 08/12/20 11:27 Pulse Oximetry 100 08/12/20 11:27 Course <LILIA Lake - Last Filed: 08/12/20 15:45> Course Course Narrative: LAN Prado spoke with [facility] at [facility], requesting medical clearance forms faxed as well as 90 mg pills Ativan. This was confirmed. 1530: After [facility] detox beds rejected patient due to lack of substances in patient's urine, Ativan RX was canceled. I called the pharmacy and canceled this RX myself. Orders Ordered: ED Orders 08/12/20 11:36 COVID19 Stat 08/12/20 11:47 Complete Blood Count AUTO DIFF Stat Comprehensive Metabolic Panel Stat Ethanol (ETOH) Stat Thyroid Stimulating Hormone Stat 08/12/20 12:19 Urine Drug Screen, Rapid Stat 08/12/20 15:09 Consult to [facility] Sanitary Engineering Teacher Stat Vital Signs Vital signs: Vital Signs - 8 hr 08/12/20 11:27 08/12/20 15:47 Temperature 97.8 F Pulse Rate 86 85 Respiratory Rate 14 15 Blood Pressure 137/83 121/71 Pulse Oximetry 100 99 <Zahida Escalante DO - Last Filed: 08/12/20 19:23> Orders Ordered: ED Orders 08/12/20 11:36 COVID19 Stat 08/12/20 11:47 Complete Blood Count AUTO DIFF Stat Comprehensive Metabolic Panel Stat Ethanol (ETOH) Stat Thyroid Stimulating Hormone Stat 08/12/20 12:19 Urine Drug Screen, Rapid Stat 08/12/20 15:09 Consult to [facility] Stat Vital Signs Vital signs: Vital Signs - 8 hr 08/12/20 11:27 08/12/20 15:47 Temperature 97.8 F Pulse Rate 86 85 Respiratory Rate 14 15 Blood Pressure 137/83 121/71 Pulse Oximetry 100 99 MDM - Alcohol <LILIA Lake - Last Filed: 08/12/20 15:45> Medical Records Attestation: I reviewed the patient's medical records. Lab Data Attestation: I reviewed the patient's lab results. Result diagrams: 08/12/20 11:47 08/12/20 11:47 Labs: Lab Results 08/12/20 08/12/20 08/12/20 Range/Units 11:36 11:47 11:47 WBC 6.0 (4.5-11.0) X10^3/uL RBC 4.61 (4.5-5.9) X10^6/uL Hgb 14.3 (13.5-17.5) g/dL Hct 42.7 (41-53) % MCV 92.8 (80-100) fL MCH 31.0 (26-34) PG MCHC 33.4 (30-36) % RDW 13.1 (11.6-14.8) % Plt Count 224 (150-400) X10^3/uL Neut % (Auto) 76.2 H (50-75) % Lymph % (Auto) 17.1 L (25-40) % [place] % (Auto) 4.0 (3-14) % Eos % (Auto) 2.2 (2-4) % Baso % (Auto) 0.5 (0-2) % Neut # (Auto) 4500 (6173-5446) /uL Lymph # (Auto) 1000 L (5052-8889) /uL [place]ett # (Auto) 200 (0-900) /uL Eos # (Auto) 100 (0-450) /uL Baso # (Auto) 0 (0-100) /uL Sodium 139 (137-145) mmol/L Potassium 4.0 (3.4-5.1) mmol/L Chloride 102 (98-107) mmol/L Carbon Dioxide 33 H (22-32) mmol/L BUN 16 (9-20) mg/dL Creatinine 0.73 (0.66-1.25) mg/dL Estimated GFR > 60.0 (>60) mL/min BUN/Creatinine Ratio 21.9 (6-22) Glucose 88 (70-100) mg/dL Calcium 8.9 (8.4-10.2) mg/dL Total Bilirubin 0.4 (0.2-1.3) mg/dL AST 29 (17-59) IU/L ALT 23 (<50) IU/L Alkaline Phosphatase 42 (38-126) U/L Total Protein 7.2 (6.3-8.2) g/dL Albumin 4.5 (3.5-5.0) g/dL Globulin 2.7 (1.7-4.1) g/dL Albumin/Globulin Ratio 1.7 (1.0-2.8) TSH (0.47-4.68) uIU/mL U Opiates 300ng/mL cut (Negative) Ur Oxycodone Screen (Negative) Urine Methadone Screen (Negative) Ur Barbiturates Screen (Negative) U Tricyclic Antidepress (Negative) Ur Phencyclidine Scrn (Negative) Ur Amphetamines Screen (Negative) U Methamphetamines Scrn (Negative) Ur MDMA Scrn (Ecstasy) (Negative) U Benzodiazepines Scrn (Negative) Urine Cocaine Screen (Negative) U Marijuana (THC) Screen (Negative) Ethyl Alcohol < 10 ( - 10) mg/dL SARS-CoV-2 (PCR) Negative (Negative) 08/12/20 08/12/20 Range/Units 11:47 12:19 WBC (4.5-11.0) X10^3/uL RBC (4.5-5.9) X10^6/uL Hgb (13.5-17.5) g/dL Hct (41-53) % MCV (80-100) fL MCH (26-34) PG MCHC (30-36) % RDW (11.6-14.8) % Plt Count (150-400) X10^3/uL Neut % (Auto) (50-75) % Lymph % (Auto) (25-40) % [place]arnett % (Auto) (3-14) % Eos % (Auto) (2-4) % Baso % (Auto) (0-2) % Neut # (Auto) (0955-8926) /uL Lymph # (Auto) (2147-3233) /uL Harnett # (Auto) (0-900) /uL Eos # (Auto) (0-450) /uL Baso # (Auto) (0-100) /uL Sodium (137-145) mmol/L Potassium (3.4-5.1) mmol/L Chloride (98-107) mmol/L Carbon Dioxide (22-32) mmol/L BUN (9-20) mg/dL Creatinine (0.66-1.25) mg/dL Estimated GFR (>60) mL/min BUN/Creatinine Ratio (6-22) Glucose (70-100) mg/dL Calcium (8.4-10.2) mg/dL Total Bilirubin (0.2-1.3) mg/dL AST (17-59) IU/L ALT (<50) IU/L Alkaline Phosphatase (38-126) U/L Total Protein (6.3-8.2) g/dL Albumin (3.5-5.0) g/dL Globulin (1.7-4.1) g/dL Albumin/Globulin Ratio (1.0-2.8) TSH 1.18 (0.47-4.68) uIU/mL U Opiates 300ng/mL cut Negative (Negative) Ur Oxycodone Screen Negative (Negative) Urine Methadone Screen Negative (Negative) Ur Barbiturates Screen Negative (Negative) U Tricyclic Antidepress Negative (Negative) Ur Phencyclidine Scrn Negative (Negative) Ur Amphetamines Screen Negative (Negative) U Methamphetamines Scrn Negative (Negative) Ur MDMA Scrn (Ecstasy) Negative (Negative) U Benzodiazepines Scrn Negative (Negative) Urine Cocaine Screen Negative (Negative) U Marijuana (THC) Screen Positive H (Negative) Ethyl Alcohol ( - 10) mg/dL SARS-CoV-2 (PCR) (Negative) Urine Dip Bedside Urine Glucose Negative Bedside Urine Bilirubin - Negative Bedside Urine Ketone - Negative Urine Specific [place] 1.015 Bedside Urine Occult Blood - Negative Bedside Urine pH 7.5 Bedside Urine Protein - Negative Bedside Urine Urobilinogen - Negative Bedside Urine Nitrite - Negative Bedside Urine Leukocytes - Negative Esterase MDM Narrative Medical decision making narrative: 29yo male presents to the emergency department for medical clearance for [facility]. Patient initially spoke with them 1st and was directed to come to the ED for medical clearance. Patient was medically clear. However, after faxing papers, [facility] detox declined patient as he is not currently withdrawing from any substances. lawn maintenance worker was consulted, patient was given resources. A prescription for Ativan that [facility] detox requested was canceled by myself via phone. He was encouraged to return emergency department for any new or worsening symptoms. Patient agreed to plan of care verbalized understanding. <Zahida Escalante, DO - Last Filed: 08/12/20 19:23> Lab Data Labs: Lab Results 08/12/20 08/12/20 08/12/20 Range/Units 11:36 11:47 11:47 WBC 6.0 (4.5-11.0) X10^3/uL RBC 4.61 (4.5-5.9) X10^6/uL Hgb 14.3 (13.5-17.5) g/dL Hct 42.7 (41-53) % MCV 92.8 (80-100) fL MCH 31.0 (26-34) PG MCHC 33.4 (30-36) % RDW 13.1 (11.6-14.8) % Plt Count 224 (150-400) X10^3/uL Neut % (Auto) 76.2 H (50-75) % Lymph % (Auto) 17.1 L (25-40) % [place] % (Auto) 4.0 (3-14) % Eos % (Auto) 2.2 (2-4) % Baso % (Auto) 0.5 (0-2) % Neut # (Auto) 4500 (8953-8891) /uL Lymph # (Auto) 1000 L (4577-4450) /uL [place]ett # (Auto) 200 (0-900) /uL Eos # (Auto) 100 (0-450) /uL Baso # (Auto) 0 (0-100) /uL Sodium 139 (137-145) mmol/L Potassium 4.0 (3.4-5.1) mmol/L Chloride 102 (98-107) mmol/L Carbon Dioxide 33 H (22-32) mmol/L BUN 16 (9-20) mg/dL Creatinine 0.73 (0.66-1.25) mg/dL Estimated GFR > 60.0 (>60) mL/min BUN/Creatinine Ratio 21.9 (6-22) Glucose 88 (70-100) mg/dL Calcium 8.9 (8.4-10.2) mg/dL Total Bilirubin 0.4 (0.2-1.3) mg/dL AST 29 (17-59) IU/L ALT 23 (<50) IU/L Alkaline Phosphatase 42 (38-126) U/L Total Protein 7.2 (6.3-8.2) g/dL Albumin 4.5 (3.5-5.0) g/dL Globulin 2.7 (1.7-4.1) g/dL Albumin/Globulin Ratio 1.7 (1.0-2.8) TSH (0.47-4.68) uIU/mL U Opiates 300ng/mL cut (Negative) Ur Oxycodone Screen (Negative) Urine Methadone Screen (Negative) Ur Barbiturates Screen (Negative) U Tricyclic Antidepress (Negative) Ur Phencyclidine Scrn (Negative) Ur Amphetamines Screen (Negative) U Methamphetamines Scrn (Negative) Ur MDMA Scrn (Ecstasy) (Negative) U Benzodiazepines Scrn (Negative) Urine Cocaine Screen (Negative) U Marijuana (THC) Screen (Negative) Ethyl Alcohol < 10 ( - 10) mg/dL SARS-CoV-2 (PCR) Negative (Negative) 08/12/20 08/12/20 Range/Units 11:47 12:19 WBC (4.5-11.0) X10^3/uL RBC (4.5-5.9) X10^6/uL Hgb (13.5-17.5) g/dL Hct (41-53) % MCV (80-100) fL MCH (26-34) PG MCHC (30-36) % RDW (11.6-14.8) % Plt Count (150-400) X10^3/uL Neut % (Auto) (50-75) % Lymph % (Auto) (25-40) % [place] % (Auto) (3-14) % Eos % (Auto) (2-4) % Baso % (Auto) (0-2) % Neut # (Auto) (4646-7856) /uL Lymph # (Auto) (4111-3129) /uL [place]ett # (Auto) (0-900) /uL Eos # (Auto) (0-450) /uL Baso # (Auto) (0-100) /uL Sodium (137-145) mmol/L Potassium (3.4-5.1) mmol/L Chloride (98-107) mmol/L Carbon Dioxide (22-32) mmol/L BUN (9-20) mg/dL Creatinine (0.66-1.25) mg/dL Estimated GFR (>60) mL/min BUN/Creatinine Ratio (6-22) Glucose (70-100) mg/dL Calcium (8.4-10.2) mg/dL Total Bilirubin (0.2-1.3) mg/dL AST (17-59) IU/L ALT (<50) IU/L Alkaline Phosphatase (38-126) U/L Total Protein (6.3-8.2) g/dL Albumin (3.5-5.0) g/dL Globulin (1.7-4.1) g/dL Albumin/Globulin Ratio (1.0-2.8) TSH 1.18 (0.47-4.68) uIU/mL U Opiates 300ng/mL cut Negative (Negative) Ur Oxycodone Screen Negative (Negative) Urine Methadone Screen Negative (Negative) Ur Barbiturates Screen Negative (Negative) U Tricyclic Antidepress Negative (Negative) Ur Phencyclidine Scrn Negative (Negative) Ur Amphetamines Screen Negative (Negative) U Methamphetamines Scrn Negative (Negative) Ur MDMA Scrn (Ecstasy) Negative (Negative) U Benzodiazepines Scrn Negative (Negative) Urine Cocaine Screen Negative (Negative) U Marijuana (THC) Screen Positive H (Negative) Ethyl Alcohol ( - 10) mg/dL SARS-CoV-2 (PCR) (Negative) Urine Dip Bedside Urine Glucose Negative Bedside Urine Bilirubin - Negative Bedside Urine Ketone - Negative Urine Specific [place] 1.015 Bedside Urine Occult Blood - Negative Bedside Urine pH 7.5 Bedside Urine Protein - Negative Bedside Urine Urobilinogen - Negative Bedside Urine Nitrite - Negative Bedside Urine Leukocytes - Negative Esterase Discharge Plan Departure Patient Disposition: Home Clinical Impression: Desire for detoxification Activity Restrictions/Additional Instructions: Thank you for entrusting me with your care today. As discussed, you are medically clear. Your laboratory work, urinalysis, and COVID test are non-remarkable. Your given a packet of resources to help with detox. I apologize that [facility] detox beds have not accepted you at this time Return emergency department for any new or worsening symptoms. Prescriptions: New lorazepam [Ativan] 2 mg tablet 2 mg PO TID PRN (Reason: ETOH detox) Qty: 9 RF: 0 No Action clonazepam 1 MG tablet 1 mg PO DAILY PRN (Reason: Anxiety) Qty: 90 RF: 0 dextroamphetamine-amphetamine 30 MG capsule,extended release 24hr 60 mg PO QDAY RF: 0 <Zahida Escalante, DO - Last Filed: 08/12/20 19:23> Cosign ED Attending Marcelle Attestation: I was immediately available in the department for consultation. Documentation has been reviewed. Case was discussed. Social work was involved but because patient was negative for EtOH or substances other than THC he was not except to detox or actively withdrawing he was not accepted.
[2020-08-12 13:04] LABS: UR Morphine/Opiate cutoff 300 Negative (Negative); Ur Creatinine Normal (Normal); Ur Specific Gravity Normal (Normal); Urine Amphetamines Negative (Negative); Urine Barbiturates Negative (Negative); Urine Benzodiazepines Negative (Negative); Urine Cocaine Negative (Negative); Urine MDMA Negative (Negative); Urine Methadone Negative (Negative); Urine Methamphetamines Negative (Negative); Urine Oxycodone Negative (Negative); Urine Phencyclidine Negative (Negative); Urine Tetrahydrocannabinol Positive (Negative); Urine Tricyclic Antidepressant Negative (Negative); Urine pH Normal (Normal)
--- NOTE | 2020-08-12 15:06 | PC.NURSE ---
Refused by [facility]. Bhavana at [facility] detox states the paient does not meet criteria for admission to detox. Bhavana states if the patient was to go back out and use and be in the conditions he was a few days ago they would take him. says he needs to be in the throws of withdrawl in order for them to accept and treat him. Provider aware. this nurse reached out to [facility] and faxed information for the patinet to take home and to reach out to.
[2020-08-12 15:47] VITALS: BP 121/71; PULSE 85; RESP 15; O2SAT 99
== END 2020-08-12 15:56 | disposition home or self-care (01) ==
PROVIDERS: Emergency Medicine; Emergency Provider Nurse Practitioner
DX: F10.20 Alcohol dependence, uncomplicated (principal); F12.90 Cannabis use, unspecified, uncomplicated; Z20.822 Contact with and (suspected) exposure to COVID-19
CPT/HCPCS: 36415; 80053; 80305; 80320; 81003; 84443; 85025; 87635; 99283

== ENCOUNTER 2021-05-09 17:10 | Emergency (ER) | payer OTHER, MEDICAID, SELFPAY ==
[2021-05-09 17:18] VITALS: BP 145/88; PULSE 114; RESP 16; TEMP 36.8; O2SAT 98; BMI 23.0
[2021-05-09 17:46] LABS: COVID19 -Nasal RAPID POSITIVE (Negative)
[2021-05-09 18:30] VITALS: PULSE 94; RESP 18; O2SAT 99
--- NOTE | 2021-05-09 18:34 | ED.GENADULT ---
HPI - General Adult General Chief complaint: Upper Respiratory Symptoms Stated complaint: cough/feverish covid exposure Time Seen by Provider: 05/09/21 18:26 Source: patient Mode of arrival: Ambulatory Limitations: no limitations History of Present Illness HPI narrative: Patient is a 30-year-old male who is here for evaluation of a couple days of having cough, fevers, body aches, chest congestion. He is on vaccinated against COVID-19. 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 He stated that 1 of those individuals did test positive for COVID. He is here seeking a COVID test. Related Data Home Medications Medication Instructions Recorded Confirmed clonazepam 1 mg tablet 1 mg PO DAILY PRN #90 10/11/17 08/12/20 dextroamphetamine-amphetamine ER 60 mg PO QDAY 08/12/20 08/12/20 30 mg 24hr capsule,extend release Previous Rx's Medication Instructions Recorded lorazepam 2 mg tablet (Ativan) 2 mg PO TID PRN #9 tab 08/12/20 Allergies Allergy/AdvReac Type Severity Reaction Status Date / Time No Known Drug Allergies Allergy Verified 08/12/20 11:33 Review of Systems Constitutional Constitutional: Reports body ache(s), Reports chills and Reports fever(s) Cardiovascular Cardiovascular: Reports as per HPI and Reports system reviewed and no additional complaints, except as documented Respiratory Respiratory: Reports as per HPI and Reports system reviewed and no additional complaints, except as documented Gastrointestinal Gastrointestinal: Reports system reviewed and no additional complaints, except as documented Integumentary/Breasts Skin/Breast: Reports system reviewed and no additional complaints, except as documented Hematologic/Lymphatic On Anticoagulants: No Patient History Medical History Anxiety History of narcotic addiction No chronic problems Surgical History No history of previous surgery Social History Smoking Status: Current every day smoker Smoking Status: Current every day smoker tobacco type: cigarettes alcohol intake frequency: 0-2 drinks per day Substance Use Type: marijuana and opiates Exam Initial Vital Signs Initial Vital Signs: Vital Signs Temperature 98.2 F 10/01/21 17:18 Pulse Rate 114 H 05/09/21 17:18 Respiratory Rate 16 05/09/21 17:18 Blood Pressure 145/88 H 05/09/21 17:18 Pulse Oximetry 98 05/09/21 17:18 HENMT Head: normal to inspection and normocephalic Resp Effort & Inspection: normal respiratory effort, not labored, no respiratory distress and not tachypneic Cardio Rate: regular rate Skin General: no rashes or lesions noted Neuro General: patient alert, patient awake and moves all extremities Extrem General: normal to inspection and capillary refill normal Psych Appearance: grossly normal and well kempt Course Orders Ordered: ED Orders 05/09/21 17:24 COVID19 -Nasal swab/Pre-Proc Stat Vital Signs Vital signs: Vital Signs - 8 hr 05/09/21 17:18 05/09/21 18:30 Temperature 98.2 F Pulse Rate 114 H 94 H Respiratory Rate 16 18 Blood Pressure 145/88 H Pulse Oximetry 98 99 Medical Decision Making Lab Data Lab results reviewed: Yes I reviewed the patient's lab results. Labs: Lab Results 05/09/21 Range/Units 17:24 SARS-CoV-2 (PCR) Positive H (Negative) MDM Narrative Medical decision making narrative: Patient is not in respiratory distress. Not hypoxic. Not tachypneic. His COVID test is positive. I did discuss this with him. We did discuss current CDC guidelines with regard to quarantine. He was given return precautions and follow-up instructions. He expressed understanding and agreement. Discharge Plan Departure Patient Disposition: Home Clinical Impression: COVID-19 Instructions: DI for COVID-19 (Suspected or Confirmed ) Activity Restrictions/Additional Instructions: Your COVID-19 test today was positive. Current CDC guidelines is that you need to quarantine yourself for the next 10 days. You also need to be fever free for 24 hours and the rest your symptoms need to be improving. Be sure to increase your fluid intake. You can take Tylenol for any fevers or body aches. Return to the emergency department for any worsening problems breathing. Prescriptions: No Action clonazepam 1 MG tablet 1 mg PO DAILY PRN (Reason: Anxiety) Qty: 90 RF: 0 dextroamphetamine-amphetamine 30 MG capsule,extended release 24hr 60 mg PO QDAY RF: 0 lorazepam [Ativan] 2 mg tablet 2 mg PO TID PRN (Reason: ETOH detox) Qty: 9 RF: 0
== END 2021-05-09 18:38 | disposition home or self-care (01) ==
PROVIDERS: Emergency Medicine; Emergency Provider Emergency Medicine
DX: U07.1 COVID-19 (principal); R50.9 Fever, unspecified
CPT/HCPCS: 87635; 99282; C9803

== ENCOUNTER 2021-06-15 11:06 | Emergency (ER) | payer OTHER, MEDICAID, SELFPAY | END 2021-06-15 11:43 | disposition left against medical advice (07) | PROVIDERS: Emergency Provider Emergency Medicine ==